=== PATIENT | male | born 1965 | race Two or more races ===

== ENCOUNTER 2018-09-24 07:26 | Emergency (ER) | payer MEDICAID ==
[~2018-09-24] VITALS: Ht 177.8 cm; Wt 74.8 kg
[~2018-09-24 07:26] MED LIST: NKM
[2018-09-24 07:29] VITALS: BP 169/78
--- NOTE | 2018-09-24 07:33 | NUR ---
ED Nurse Note: Pt was brought in to ER by ambulance c/o both ear pain 03/10. Pt has yellow drainage coming out from Rt ear but complaining of pain on both ears. skin dry but intact. pt aao x4
--- NOTE | 2018-09-24 07:42 | Emergency Room Report ---
History of Present Illness General Chief Complaint: Earache Source: Patient, EMS Present Illness HPI Patient presents with bilateral ear pain. Right greater than left. Drainage from the right ear. He states he's had if her almost 1 week. He complains of 6 out of 10 severity in pain. He denies any fever. He denies any radiation. No other associated symptoms. Allergies: Coded Allergies: No Known Allergies (Unverified , 09/24/18) Patient History Past Medical History: DM, other - non compliant with Metformin Past Surgical History: none Pertinent Family History: DM Nursing Documentation-PMH Hx Diabetes: Yes Review of Systems All Other Systems: negative except mentioned in HPI Physical Exam Vital Signs Date Time Temp Pulse Resp B/P (MAP) Pulse Ox O2 Delivery O2 Flow Rate FiO2 09/24/18 07:18 98.4 73 18 169/78 99 Room Air ENT: normal pharynx, normal voice, other - right TM bulging. EAM swollen on the right Neck: normal inspection, full range of motion Respiratory: normal inspection, normal breath sounds Gastrointestinal: normal bowel sounds, non tender, soft Neurologic: normal inspection, alert Medical Decision Making Reaction to Intervention: Improved ER Course I was particularly concerned about malignant otitis externa, temporal arteritis , mastoiditis. The patient is nontoxic-appearing. He has no tenderness in the mastoid region. The patient was given Cortisporin otic. He is to use this. I do not feel the patient is indication for systemic and oral antibiotics. The patient is alert and nontoxic appearing. His blood sugar was slightly elevated. I've had a long discussion with the patient regarding compliance with his medications. He does not appear to have any evidence of respiratory distress. No evidence of ketosis. He is not vomiting. Last Vital Signs Date Time Temp Pulse Resp B/P (MAP) Pulse Ox O2 Delivery O2 Flow Rate FiO2 09/24/18 07:29 98.4 89 18 169/78 99 Room Air Disposition: HOME, SELF-CARE Patient Instructions: Otitis Externa, [id number] Additional Instructions: Place 2 drops of the Cortisporin medication to the Right ear 3 times a day for 5 days ALICIA BEATTY Sep 24, 2018 07:42
[2018-09-24] MEDS ORDERED: Cortisporin OTIC Susp - 10ml RIGHT EAR ONE (07:45)
[2018-09-24 09:17] VITALS: BP 169/78
--- NOTE | 2018-09-24 09:18 | NUR ---
ED Nurse Note: Pt provided the address to go. [address], [place]. Pt was provided bus tab to take bus. pt is wearing weather proper clothing with shoes. pt is cleared to be discharged per ERMD, pt is aox4, on room air, with stable vital signs. pt was given dc instruction and left over ear drop, pt was able to verbalize understanding, pt id band removed. pt is able to ambulate with steady gait. pt took all belongings.
== END 2018-09-24 09:17 | disposition home or self-care (01) ==
LOC: EDBD 07:26 → EMR 07:35
DX: H92.03 Otalgia, bilateral (principal); E11.9 Type 2 diabetes mellitus without complications
CPT/HCPCS: 82962; 99282